=== PATIENT | male | born 2000 | race Two or more races ===

== ENCOUNTER 2024-06-24 22:28 | Emergency (ER) | payer BC, OTHER ==
[~2024-06-24] VITALS: Ht 185.4 cm; Wt 107.1 kg
--- NOTE | 2024-06-25 00:04 | DVH ---
CT HEAD WITHOUT CONTRAST INDICATION: Right orbital trauma/LOC COMPARISON: None TECHNIQUE: CT of the head without intravenous contrast. RADIATION DOSE: CTDIvol: mGy, DLP: mGy*cm FINDINGS: There is no evidence of intracranial hemorrhage, infarct, extra-axial collection, mass effect, midli ne shift, herniation or hydrocephalus. The ventricles, sulci and cisterns are normal. The ramirez-whit e differentiation is normal. Visualized paranasal sinuses and mastoid air cells are clear. Mild soft tissue swelling/contusion in right periorbital region. No calvarial abnormality/fracture. IMPRESSION: No intracranial abnormality.
[2024-06-25] MEDS ORDERED: CEPH250C PO (01:01)
[2024-06-25] MEDS ORDERED: IBUP-1455 PO (01:01)
--- NOTE | 2024-06-25 01:02 | ED.PDOC ---
HPI (NEURO) HPI Comments This patient is a fit 24-year-old male who arrives the ED today for a laceration above his right eyelid status post having a head collision while playing soccer. Patient states that he and another player went up for a ball and had collision mid air. Patient states that he had a loss of consciousness event. Patient arrives with a controlled bleed to his right eyebrow laceration. Patient denies any change in vision. Vital signs were stable. Patient did not display any signs of altered mental status. Chief Complaint: Head Injury Time Seen by MD: 22:37 Reviewed Notes: Nurses Notes Information Source: Patient Mode of Arrival: Ambulatory Severity: Moderate Headache Severity: Moderate Timing: Hours Duration: Since onset Prehospital treatment: None Headache Location: Frontal Circumstances: Other (Head coalition while playing soccer) Before: Normal After: Normal Mentation Past Medical History PAST MEDICAL HISTORY: Denies Surgical History: Denies all surgeries Family History Family History: Reviewed,noncontributory to illness, No family hx of Cancer, No family hx of DM, No family hx of Heart [place], No family hx of HTN, No family hx ofKidney [place], No family hx of Liver [place], No family hx of Lung [place], No family hx of Stroke Social History Smoker: Non-Smoker Alcohol: Denies ETOH Use Drugs: Denies Drug Use Lives In: Home Constitutional: denies: chills, diaphoresis, fatigue, fever, malaise, sweats, weakness, others EENTM: denies: blurred vision, double vision, ear bleeding, ear discharge, ear drainage, ear pain, ear ringing, eye pain, eye redness, hearing loss, mouth pain, mouth swelling, nasal discharge, nose bleeding, nose congestion, nose pain, photophobia, tearing, throat pain, throat swelling, voice changes, others Respiratory: denies: cough, hemoptysis, orthopnea, SOB at rest, shortness of breath, SOB with excertion, stridor, wheezing, others Cardiovascular: denies: chest pain, dizzy spells, diaphoresis, Dyspnea on exertion, edema, irregular heart beat, left arm pain, lightheadedness, palpitations, PND, syncope, others Gastrointestinal: denies: abdomen distended, abdominal pain, blood streaked bowels, constipated, diarrhea, dysphagia, difficulty swallowing, hematemesis, melena, nausea, poor appetite, poor fluid intake, rectal bleeding, rectal pain, vomiting, others Genitourinary: denies: burning, dysuria, flank pain, frequency, hematuria, incontinence, penile discharge, penile sore, pain, testicle pain, testicle swelling, urgency, others Neurological: denies: dizziness, fainting, headache, left sided numbness, left sided weakness, numbness, paresthesia, pre-existing deficit, right sided numbness, right sided weakness, seizure, speech problems, tingling, tremors, weakness, others Musculoskeletal: denies: back pain, gout, joint pain, joint swelling, muscle pain, muscle stiffness, neck pain, others Integumetry: reports: laceration (Right eyebrow); denies: bruises, change in color, change in hair/nails, dryness, lesions, lumps, rash, wounds, others Allergic/Immunocompromised: denies: Difficulty Healing, Frequent Infections, Hives, Itching, others Hematologic/Lymphatic: denies: anemia, blood clots, easy bleeding, easy bruising, swollen glands, others Endocrine: denies: excessive hunger, excessive sweating, excessive thirst, excessive urination, flushing, intolerance to cold, intolerance to heat, unexplained weight gain, unexplained weight loss, others Psychiatric: denies: anxiety, bipolar disorder, depression, hopeless, panic disorder, schizophrenia, sleepless, suicidal, others Physical Exam General Appearance: Mild Distress (Moderate distress due to right eyebrow laceration and LOC event.), Normal HEENT: Head (Edema noted to the superior aspect of the right orbital. Laceration appreciated. No skull depressions or deformities. No change in vision.), Normal ENT Inspection, Pharynx Normal, TMs Normal Neck: Full Range of Motion, Non-Tender, Normal, Normal Inspection Respiratory: Chest Non-Tender, Lungs Clear, No Accessory Muscle Use, No Respiratory Distress, Normal Breath Sounds Cardiovascular: No Edema, No JVD, No Murmur, No Gallop, Normal Peripheral Pulses, Regular Rate/Rhythm Breast Exam: Deferred Gastrointestinal: No Organomegaly, Non Tender, No Pulsatile Mass, Normal Bowel Sounds, Soft Genitalia: Deferred Pelvic: Deferred Rectal: Deferred Extremities: No calf tenderness, Normal capillary refill, Normal inspection, Normal range of motion, Non-tender, No pedal edema Neurologic: Alert, No Motor Deficits, Normal Affect, Normal Mood, No Sensory Deficits Cerebellar Function: Normal Reflexes: Normal Skin: Dry, Lacerations (3 cm laceration noted to the lateral aspect of the superior right eyebrow. No active bleed. No skull depression or deformity.), Normal Color, Warm Lymphatic: No Adenopathy Was a procedure done? Was a procedure done?: Yes Sedation Sedation?: No Other Procedure Notes 3 cc of 1% lidocaine was utilized for local anesthesia. Sterile field was place d. Copious irrigation performed. Seven 5-0 Ethilon sutures were placed in a simple interrupted fashion to close the wound. Minimal blood loss. Patient tolerated procedure well. Clean dressing applied. Differential Diagnosis (SZ) Seizure: N/A Headache: Other (Skull fracture, facial bone fracture, subarachnoid hemorrhage, subdural hematoma, facial lacerations, facial trauma) X-Ray, Labs, Meds, VS Vital Signs Date Time Temp Pulse Resp B/P (MAP) Pulse Ox O2 Delivery O2 Flow Rate FiO2 06/24/24 22:59 98.1 62 18 131/83 (99) 98 X-Ray, Labs, Meds, VS Comment All studies performed the ED were evaluated by me personally. CT imaging of the head was unremarkable for any intracranial concerns or skull fractures. Advised patient utilize antibiotics as directed. Patient should follow up with the primary care provider or ED in 8-10 days for re-evaluation and probable suture removal. Time of 1ST Reevaluation: 00:59 Reevaluation 1ST: Improved Consultation: PCP Patient Education/Counseling: Diagnosis, Treatment Family Education/Counseling: Diagnosis, Treatment Departure 1 Departure Time of Disposition: 01:00 Impression: Primary Impression: Head trauma Additional Impression: Facial laceration Disposition: HOME / SELF CARE / HOMELESS Condition: Stable Additional Instructions: Advised patient utilize antibiotics as directed until completion. Patient should utilize pain medication as needed. Patient should return to ED or primary care provider in 8-10 days for re-evaluation and probable suture removal. e-Prescriptions Ibuprofen Micronized (Ibuprofen) 800 Mg Tab 800 MG PO Q8HP PRN, #20 TAB Prov: MANDI NICE PAC 06/25/24 Cephalexin (KEFLEX CAPSULE) 250 Mg Cp 1 CAP PO QID for 7 Days, #28 CAP Prov: MANDI NICE PAC 06/25/24 Discharged With: Self, Friend Critical Care Note Critical Care Time?: No Stability Stability form required: No Heart Score Heart Score: Heart Score Response (Comments) Value History N/A 0 EKG N/A 0 Age N/A 0 Risk Factors N/A 0 Troponin N/A 0 Total 0 MANDI NICE PAC Jun 25, 2024 01:01
[2024-06-25 02:20] VITALS: BP 124/75; PULSE 60; RESP 18; TEMP 97.7; O2SAT 99
== END 2024-06-25 02:23 | disposition home or self-care (01) ==
LOC: ER 22:28
DX: S01.81XA Laceration without foreign body of other part of head, initial encounter (principal); W21.89XA Striking against or struck by other sports equipment, initial encounter; Y93.66 Activity, soccer; Y92.89 Other specified places as the place of occurrence of the external cause; Y99.8 Other external cause status
CPT/HCPCS: 12013; 70450; 99284; J2003